=== PATIENT | male | born 1985 | race Asian ===

== ENCOUNTER 2017-06-02 12:20 | Emergency (ER) | payer OTHER ==
[~2017-06-02] VITALS: Ht 180.3 cm; Wt 74.0 kg
--- NOTE | 2017-06-02 12:35 | NUR ---
PATIENT PRESENTS TO ED WITH RIGHT SIDED ABDOMINAL PAIN. PT STATES RASH STARTED ON WEDNESDAY WITH ACCOMPANIED RIGHT SIDED ABD PAIN. DENIES N/V/D; SKIN IS PINK/WARM/DRY; AAOX4 WITH EVEN AND STEADY GAIT; LUNGS CLEAR BL; HR EVEN AND REGULAR; PT DENIES ANY FEVER, CP, SOB, OR COUGH AT THIS TIME; PATIENT STATES PAIN OF 10/10 AT THIS TIME; VSS; PATIENT POSITIONED FOR COMFORT; HOB ELEVATED; BEDRAILS UP X2; BED DOWN. ER MD MADE AWARE OF PT STATUS.
[2017-06-02 12:37] VITALS: BP 127/87
--- NOTE | 2017-06-02 12:37 | NUR ---
Pt ambulated to bed 1.
--- NOTE | 2017-06-02 12:45 | NUR ---
LEFT MESSAGE TO ELISHA,INFECTION PREVENTION, RE:case of chicken pox in er
--- NOTE | 2017-06-02 13:00 | NUR ---
spoke to dr. barraza the need to place patient to isolation/negative room after talking to norma.
--- NOTE | 2017-06-02 13:08 | NUR ---
dr. barraza will discharge patient. norma,notified.
--- NOTE | 2017-06-02 13:19 | NUR ---
Patient discharged with v/s stable. Written and verbal after care instructions given and explained. Patient alert, oriented and verbalized understanding of instructions. Ambulatory with steady gait. All questions addressed prior to discharge. ID band removed. Patient advised to follow up with PMD. Rx of ACYCLOVIR given. Patient educated on indication of medication including possible reaction and side effects. Opportunity to ask questions provided and answered.
[2017-06-02 13:23] VITALS: BP 127/87
== END 2017-06-02 13:19 | disposition home or self-care (01) ==
LOC: MED 12:20
DX: B01.9 Varicella without complication (principal)
CPT/HCPCS: 99283